=== PATIENT | male | born 1995 | race Caucasian/White ===

== ENCOUNTER → 2017-10-31 | Outpatient (CLI) | payer OTHER, BC ==
--- NOTE | 2017-11-01 00:10 | MR ---
EXAMINATION TYPE: MR lumbar spine wo con DATE OF EXAM: 10/31/2017 COMPARISON: HISTORY: Back pain. Fell off the roof. TECHNIQUE: Multiplanar, multisequence images of the lumbar spine were acquired. Lumbar vertebra have normal alignment. There is slight decreased signal in the L4-5 disc. There is po sterior central and right-sided L4-5 disc herniation. The neuroforamina are fairly well-maintained. T here is no spinal stenosis. There is no compression fracture. I see no focal bone destruction. Lumbar nerve roots appear normal. There is no lumbar paraspinal mass. Visualized sacroiliac joints appear i ntact. IMPRESSION: Mild degenerative disc change at L4-5 with a mild posterior central and right-sided L4-5 disc herniat ion. No spinal stenosis. No fracture.
== END | disposition home or self-care (01) ==
LOC: RADMRIMAIN 18:10
PROVIDERS: ATTEND Family Medicine
DX: M51.36 Other intervertebral disc degeneration, lumbar region (principal); M51.26 Other intervertebral disc displacement, lumbar region
CPT/HCPCS: 72148

== ENCOUNTER 2018-07-24 17:02 | Emergency (ER) | payer OTHER, BC ==
[2018-07-24 17:16] VITALS: BP 125/88; PULSE 100; RESP 18; TEMP 97.7
[2018-07-24] MEDS ORDERED: KETOROLAC 30 MG/ML 1 ML VIAL IM STA (17:33)
[2018-07-24] MEDS ORDERED: MORPHINE SULFATE 4 MG/ML SYRINGE IM STA (17:35)
--- NOTE | 2018-07-24 17:46 | ED ---
General Adult HPI - General Chief complaint: Back Pain/Injury Stated complaint: Back pain Time Seen by Provider: 07/24/18 17:17 Source: patient, RN notes reviewed Mode of arrival: ambulatory Limitations: no limitations - History of Present Illness Initial comments: 23-year-old male presents to the emergency department for chief clean of back pain. Patient states he has had chronic back pain since his time in the service when he had a severe injury to his back. Patient states that sometimes this pain will flare up. Patient states that yesterday he was working and drywall fell on his back. He states since then he has had significant pain. Patient states he is to be on Percocet 10 for this but has not needed as pain medicine for the past several months. Patient states he usually follows up with his primary care provider for this but is unable to get in until the for his appointment. He denies saddle anesthesia. Denies numbness or tingling in the lower extremities. Denies inability to urinate or changes in bowel movements. Denies fevers or chills. Denies history of IV drug abuse. Patient has no other complaints at this time including shortness of breath, chest pain, abdominal pain, nausea or vomiting, headache, or visual changes. - Related Data Previous Rx's Medication Instructions Recorded HYDROcodone/APAP 5-325MG [[place] 1 tab PO Q6HR PRN #10 tab 07/24/18 5-325] Allergies Allergy/AdvReac Type Severity Reaction Status Date / Time No Known Allergies Allergy Verified 07/24/18 17:15 Review of Systems ROS Statement: Those systems with pertinent positive or pertinent negative responses have been documented in the HPI. ROS Other: All systems not noted in ROS Statement are negative. 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 Absent: scleral icterus, conjunctival injection, periorbital swelling ENT exam: Present: normal exam, mucous membranes moist Neck exam: Present: normal inspection, full ROM. Absent: tenderness, meningismus, lymphadenopathy Respiratory exam: Present: normal lung sounds bilaterally. Absent: respiratory distress, wheezes, rales, rhonchi, stridor Cardiovascular Exam: Present: regular rate, normal rhythm, normal heart sounds. Absent: systolic murmur, diastolic murmur, rubs, gallop, clicks GI/Abdominal exam: Present: soft, normal bowel sounds. Absent: distended, tenderness, guarding, rebound, rigid Extremities exam: Present: normal capillary refill (Capillary refill less than 2 seconds, DP pulse 2+ in lower extremities bilaterally), other (Sensation intact in lower extremities bilaterally, strength 5 out of 5 in lower extremities bilaterally) Back exam: Present: tenderness (Generalized lower thoracic and lumbar spine tenderness). Absent: full ROM (Patient has about 45 of flexion of the lumbar spine with minimal rotation due to pain) Neurological exam: Present: alert, oriented X3, CN II-XII intact, normal gait Psychiatric exam: Present: normal affect, normal mood Course Vital Signs 07/24/18 17:12 Temperature 97.7 F Pulse Rate 100 Respiratory 18 Rate Blood Pressure 125/88 O2 Sat by Pulse 100 Oximetry Medical Decision Making - Medical Decision Making 23-year-old male presents to the emergency department for a chief complaint of acute on chronic back pain. Patient states he was injured in service and has had chronic back pain since that time. Patient states drywall fell on his back yesterday and this exacerbated his pain to the point where he has pain with walking and cannot sleep at night. Patient states he usually takes Percocet 10 for his pain however hasn't needed any medications over the past several months due to improvement of symptoms. On exam patient has generalized lower thoracic and lumbar spine tenderness. No focal neuro deficits in the lower extremities. Neurovascular intact in lower extremities. Offered Toradol however patient took Toradol at home about one hour ago. Therefore patient was given IM morphine, not driving home. This did help his symptoms significantly. However I did tell patient that we would not be administering this again in the emergency department. I also gave patient 10 pills of [place] 10. Patient is aware that another prescription will not be filled here through the emergency department he will have to follow up with his primary care provider for any further pain medications. Patient is agreeable to this and states he just needs something to get him through the next few days. He will return if he has any worsening symptoms. is at bedside, will drive patient home. Disposition Clinical Impression: Mechanical back pain Disposition: HOME SELF-CARE Condition: Good Instructions (If sedation given, give patient instructions): Acute Low Back Pain (ED) Additional Instructions: Please take Motrin for pain. If pain is severe take Waldo. Do not drive or operate machinery while taking Waldo. Follow-up with her primary care provider for further prescriptions. Return here if you have any worsening symptoms. Prescriptions: HYDROcodone/APAP 5-325MG [[place] 5-325] 1 tab PO Q6HR PRN #10 tab PRN Reason: Pain Is patient prescribed a controlled substance at d/c from ED?: Yes When asked, does pt state using other controlled substances?: No If prescribed controlled substance>3 days was MAPS reviewed?: Prescribed <3 Days If opioid is for acute pain is fill amount 7 days or less?: Yes If Rx opioid, was Start Talking consent form obtained?: Yes Referrals: Ryne Diggs DO [Primary Care Provider] - 1-2 days Time of Disposition: 18:26
--- NOTE | 2018-07-24 18:11 | XR ---
EXAMINATION TYPE: XR lumbar spine 2 or 3V DATE OF EXAM: 07/24/2018 COMPARISON: NONE HISTORY: Low back pain TECHNIQUE: 2 views lateral FINDINGS: Lumbar vertebra have normal alignment. Disc spaces are fairly normal. Posterior elements ar e intact. There is no evidence of compression fracture. There is slight narrowing at L4-5 disc. IMPRESSION: Slight narrowing at L4-5 disc. Limited exam.
--- NOTE | 2018-07-24 18:12 | XR ---
EXAMINATION TYPE: XR thoracic spine 2V DATE OF EXAM: 07/24/2018 COMPARISON: NONE HISTORY: Back pain TECHNIQUE: 3 views FINDINGS: The thoracic vertebra have normal spacing and alignment. Posterior elements are intact. The re is no paraspinal mass. There is no compression fracture. IMPRESSION: Normal thoracic spine.
== END 2018-07-24 18:47 | disposition home or self-care (01) ==
LOC: EC 17:02
DX: M54.5 Low back pain (principal); M54.6 Pain in thoracic spine; F17.200 Nicotine dependence, unspecified, uncomplicated
CPT/HCPCS: 72070; 72100; 99283; 96372; J2270

== ENCOUNTER 2019-05-17 13:21 | Emergency (ER) | payer BC, OTHER ==
[2019-05-17 13:26] VITALS: BP 139/87; PULSE 95; RESP 20; TEMP 97.5
[2019-05-17] MEDS ORDERED: PROPARACAINE 0.5% OPHTH DROPS 15 ML BTL RIGHT EYE STA (13:41)
[2019-05-17] MEDS ORDERED: TOBRAMYCIN 0.3% OPHTH DROPS 5 ML BTL RIGHT EYE STA (13:48)
--- NOTE | 2019-05-17 13:49 | ED ---
Eye Problem HPI - General Chief complaint: Eye Problems Stated complaint: FB in eye Time Seen by Provider: 05/17/19 13:28 Source: patient, RN notes reviewed Mode of arrival: ambulatory Limitations: no limitations - History of Present Illness Initial comments: 24-year-old male presents emergency department for right eye foreign body . Patient was cutting metal started yesterday and states that he felt something go underneath his safety glasses. Patient states that his tetanus up-to-date last 5 years. Denies any blurred vision. He states it just feels irritated, feels that there something. I. - Related Data Previous Rx's Medication Instructions Recorded HYDROcodone/APAP 5-325MG [[place] 1 tab PO Q6HR PRN #10 tab 07/24/18 5-325] Allergies Allergy/AdvReac Type Severity Reaction Status Date / Time No Known Allergies Allergy Verified 05/17/19 13:26 Review of Systems ROS Statement: Those systems with pertinent positive or pertinent negative responses have been documented in the HPI. ROS Other: All systems not noted in ROS Statement are negative. 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, b ack pain History of Any Multi-Drug Resistant Organisms: None Reported Past Surgical History: Adenoidectomy, Tonsillectomy Additional Past Surgical History / Comment(s): cyst removed from kidney Past Psychological History: No Psychological Hx Reported Smoking Status: Current every day smoker Past Alcohol Use History: Occasional Past Drug Use History: None Reported General Exam Limitations: no limitations General appearance: alert, in no apparent distress Head exam: Present: atraumatic, normocephalic, normal inspection Eye exam: Present: PERRL, EOMI, other (Foreign body noted in the right eye there were 3 pieces of metal that was not admitted, there was some fluorescein uptake in 7 to 8 o'clock position, patient had complete relief of symptoms with proparacaine). Absent: normal appearance, scleral icterus, conjunctival injection, periorbital swelling ENT exam: Present: normal exam, normal oropharynx, mucous membranes moist, TM's normal bilaterally, normal external ear exam Neck exam: Present: normal inspection, full ROM. Absent: tenderness, men ingismus, lymphadenopathy Respiratory exam: Present: normal lung sounds bilaterally. Absent: respiratory distress, wheezes, rales, rhonchi, stridor Cardiovascular Exam: Present: regular rate, normal rhythm, normal heart sounds. Absent: systolic murmur, diastolic murmur, rubs, gallop, clicks Course Vital Signs 05/17/19 13:24 Temperature 97.5 F L Pulse Rate 95 Respiratory 20 Rate Blood Pressure 139/87 O2 Sat by Pulse 100 Oximetry Medical Decision Making - Medical Decision Making Patient had foreign body removal right eye patient was placed on Tobrex eyedrops tetanus is up-to-date patient will follow-up with ophthalmology return for any worsening symptoms. Disposition Clinical Impression: Foreign body of right eye Disposition: HOME SELF-CARE Condition: Stable Instructions (If sedation given, give patient instructions): Eye Foreign Body (ED) Additional Instructions: Use Tobrex eyedrops 1 drop to right eye every 4 hours for 5 days.Please return to the Emergency Department if symptoms worsen or any other concerns. Is patient prescribed a controlled substance at d/c from ED?: No Referrals: Ryne Diggs DO [Primary Care Provider] - 1-2 days Bobby Rios MD [STAFF PHYSICIAN] - 1-2 days Time of Disposition: 13:49
== END 2019-05-17 13:55 | disposition home or self-care (01) ==
LOC: EC 13:21
DX: T15.91XA Foreign body on external eye, part unspecified, right eye, initial encounter (principal); F17.200 Nicotine dependence, unspecified, uncomplicated
CPT/HCPCS: 65205; 99283

== ENCOUNTER 2019-05-20 12:05 | Emergency (ER) | payer OTHER ==
[2019-05-20 12:11] VITALS: RESP 20; TEMP 98
[2019-05-20] MEDS ORDERED: PROPARACAINE 0.5% OPHTH DROPS 15 ML BTL RIGHT EYE STA (12:24)
--- NOTE | 2019-05-20 12:59 | ED ---
Eye Problem HPI - General Chief complaint: Eye Problems Stated complaint: Poss metal in eye Time Seen by Provider: 05/20/19 12:23 Source: patient Mode of arrival: ambulatory Limitations: no limitations - History of Present Illness Initial comments: Patient is 24-year-old male presenting to the emergency department with a chief complaint of eye pain. Patient states 5 days ago he was in the ED for foreign body removal of rust. Patient reports all the foreign bodies were removed and he was prescribed anabiotic drops. Patient reports he continues to have eye discomfort. He denies any pain with extraocular movements. Denies taking any medication to alleviate the symptoms. Denies any discharge from the eye. Does report some blurry vision. - Related Data Previous Rx's Medication Instructions Recorded Ibuprofen [Motrin] 800 mg PO TID 28 Days tab 05/27/19 Nicotine 14Mg/24Hr Patch [Habitrol] 1 patch TRANSDERM DAILY 14 Days 05/27/19 patch OLANZapine [ZyPREXA] 5 mg PO DAILY 28 Days tab 05/27/19 OLANZapine [ZyPREXA] 10 mg PO HS 28 Days tab 05/27/19 Tetrahydrozoline 0.05% Ophth 2 drops BOTH EYES QID PRN ml 05/27/19 [Visine Eye Drops] Tobramycin 0.3% Ophth Oint [Tobrex 1 applic RIGHT EYE TID gm 05/27/19 0.3% Ophth Oint] Zolpidem Tartrate [Ambien] 5 mg PO HS PRN 3 Days #3 tab 05/27/19 cloNIDine HCL [Catapres] 0.1 mg PO TID PRN tab 05/27/19 Allergies Allergy/AdvReac Type Severity Reaction Status Date / Time No Known Allergies Allergy Verified 05/22/19 20:29 Review of Systems ROS Statement: Those systems with pertinent positive or pertinent negative responses have been documented in the HPI. ROS Other: All systems not noted in ROS Statement are negative. 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, back pain History of Any Multi-Drug Resistant Organisms: None Reported Past Surgical History: Adenoidectomy, Tonsillectomy Additional Past Surgical History / Comment(s): cyst removed from kidney Past Psychological History: No Psychological Hx Reported Smoking Status: Current every day smoker Past Alcohol Use History: Occasional Past Drug Use History: None Reported General Exam Limitations: no limitations General appearance: alert, in no apparent distress Head exam: Present: atraumatic, normocephalic, normal inspection Eye exam: Present: normal appearance, PERRL, EOMI, other (Rust ring noted at 9:00 of the right eye. Negative [place] sign) Pupils: Present: normal accommodation ENT exam: Present: normal exam Neck exam: Present: normal inspection, full ROM Respiratory exam: Present: normal lung sounds bilaterally Cardiovascular Exam: Present: regular rate, normal rhythm, normal heart sounds Extremities exam: Present: normal inspection, full ROM Back exam: Present: normal inspection, full ROM Neurological exam: Present: alert, oriented X3 Psychiatric exam: Present: normal affect, normal mood Skin exam: Present: warm, dry, intact, normal color Course Vital Signs 05/20/19 05/20/19 05/20/19 12:08 14:01 14:05 Temperature 98.0 F 98.0 F 98.0 F Pulse Rate 66 60 60 Respiratory 20 20 20 Rate Blood Pressure 126/82 125/85 125/85 O2 Sat by Pulse 99 99 99 Oximetry Medical Decision Making - Medical Decision Making Patient is 24-year-old male presenting to emergency Department with a chief co mplaint of eye pain. Exam patient does have some eye discomfort but no pain with extracted or movements. No periorbital swelling. On fluorescein stain examination patient appears to have a rust ring with negative [place] sign. Patient does have some blurry vision. Patient already has an appointment scheduled to see an rn lvn. The resting appears to be over the visual axis. Patient advised to continue follow-up with his rn lvn tomorrow. Strict return parameters were thoroughly discussed with patient was understanding and agreeable. Case discussed with physician. Disposition Clinical Impression: Corneal rust ring of right eye Disposition: HOME SELF-CARE Condition: Stable Instructions (If sedation given, give patient instructions): Corneal Abrasion (DC) Additional Instructions: Follow-up with ophthalmology. Continue using ophthalmic drops. Please return to emergency department if symptoms worsen. Is patient prescribed a controlled substance at d/c from ED?: No Referrals: Ryne Diggs DO [Primary Care Provider] - 1-2 days Bobby Rios MD [STAFF PHYSICIAN] - 1-2 days Time of Disposition: 14:04
[2019-05-20 14:01] VITALS: BP 125/85; PULSE 60
== END 2019-05-20 14:07 | disposition home or self-care (01) ==
LOC: EC 12:05
DX: T15.01XA Foreign body in cornea, right eye, initial encounter (principal); F17.200 Nicotine dependence, unspecified, uncomplicated; Y92.69 Other specified industrial and construction area as the place of occurrence of the external cause
CPT/HCPCS: 99283

== ENCOUNTER 2019-05-22 20:11 | Inpatient (IN) | payer OTHER ==
--- NOTE | 2019-05-22 21:02 | ED ---
Psych HPI - General Chief Complaint: Psychiatric Symptoms Stated Complaint: mental health Time Seen by Provider: 05/22/19 20:34 Source: patient, RN notes reviewed Mode of arrival: ambulatory - History of Present Illness Initial Comments: This is a 24-year-old male with a benign past medical History other than chronic back pain who states he made some bad choices today. He is going through a divorce and has other issues he states he did voice depression and suicidal thoughts. He does have access to a 40 caliber handgun. He was brought here by police and is under petition. He denies any drugs or alcohol denies any other prior history of depression or suicidal thoughts. MD Complaint: suicidal ideation, feels depressed - Related Data Previous Rx's Medication Instructions Recorded HYDROcodone/APAP 5-325MG [[place] 1 tab PO Q6HR PRN #10 tab 07/24/18 5-325] Allergies Allergy/AdvReac Type Severity Reaction Status Date / Time No Known Allergies Allergy Verified 05/22/19 20:29 Review of Systems ROS Statement: Those systems with pertinent positive or pertinent negative responses have been documented in the HPI. ROS Other: All systems not noted in ROS Statement are negative. 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, back pain History of Any Multi-Drug Resistant Organisms: None Reported Past Surgical History: Adenoidectomy, Tonsillectomy Additional Past Surgical History / Comment(s): cyst removed from kidney Past Psychological History: No Psychological Hx Reported Smoking Status: Current every day smoker Past Alcohol Use History: Occasional Past Drug Use History: None Reported General Exam - General Exam Comments Initial Comments: This is a well-developed well-nourished awake alert oriented 3 male Limitations: no limitations General appearance: alert, in no apparent distress Head exam: Present: atraumatic, normocephalic, normal inspection Eye exam: Present: normal appearance, PERRL, EOMI. Absent: scleral icterus, conjunctival injection, periorbital swelling ENT exam: Present: normal exam, mucous membranes moist Neck exam: Present: normal inspection. Absent: tenderness, meningismus, lymphadenopathy Respiratory exam: Present: normal lung sounds bilaterally. Absent: respiratory distress, wheezes, rales, rhonchi, stridor Cardiovascular Exam: Present: regular rate, normal rhythm, normal heart sounds. Absent: systolic murmur, diastolic murmur, rubs, gallop, clicks GI/Abdominal exam: Present: soft, normal bowel sounds. Absent: distended, tenderness, guarding, rebound, rigid Extremities exam: Present: normal inspection, full ROM, normal capillary refill. Absent: tenderness, pedal edema, joint swelling, calf tenderness Back exam: Present: normal inspection Neurological exam: Present: alert, oriented X3, CN II-XII intact Psychiatric exam: Present: depressed, flat affect, suicidal ideation Skin exam: Present: warm, dry, intact, normal color. Absent: rash Course Vital Signs 05/22/19 20:27 Temperature 98.1 F Pulse Rate 104 H Respiratory 20 Rate Blood Pressure 141/86 O2 Sat by Pulse 99 Oximetry Medical Decision Making - Medical Decision Making Age was evaluated by psychiatric service and will be admitted for inpatient treatment he is agreed to sign in voluntarily. - Lab Data Lab Results 05/22/19 Range/Units 20:41 Urine Opiates Screen Detected H (NotDetected) Ur Oxycodone Screen Detected H (NotDetected) Urine Methadone Screen Not Detected (NotDetected) Ur Propoxyphene Screen Not Detected (NotDetected) Ur Barbiturates Screen Not Detected (NotDetected) U Tricyclic Antidepress Not Detected (NotDetected) Ur Phencyclidine Scrn Not Detected (NotDetected) Ur Amphetamines Screen Detected H (NotDetected) U Methamphetamines Scrn Not Detected (NotDetected) U Benzodiazepines Scrn Detected H (NotDetected) Urine Cocaine Screen Not Detected (NotDetected) U Marijuana (THC) Screen Detected H (NotDetected) Disposition Clinical Impression: Depression, Suicidal ideation Disposition: TRANSFER TO PSYCH HOSP/UNIT Condition: Stable Referrals: Ryne Diggs DO [Primary Care Provider] - 1-2 days
[2019-05-22 21:19] LABS: Amphetamine Screen,Urine Detected (NotDetected); Barbiturate Screen,Urine Not Detected (NotDetected); Benzodiazepines Screen,Urine Detected (NotDetected); Cocaine Screen,Urine Not Detected (NotDetected); Methadone Screen, Urine Not Detected (NotDetected); Opiate Screen,Urine Detected (NotDetected); Oxycodone Screen, Urine Detected (NotDetected); Phencyclidine Screen,Urine Not Detected (NotDetected); Tricyclic Antidepressant,Urine Not Detected (NotDetected); Urn Cannabinoid Scrn Detected (NotDetected)
[2019-05-22] MEDS ORDERED: NICOTINE 14MG/24HR PATCH TRANSDERM STA (21:55)
[2019-05-22] MEDS ORDERED: HYDROcodone/APAP 5-325MG 1 EACH TAB PO STA (21:55)
[2019-05-22] MEDS ORDERED: MAG HYDROX/AL HYDROX/SIMETH 30 ML CUP PO PRN (22:59)
[2019-05-22] MEDS ORDERED: ACETAMINOPHEN TAB 325 MG TAB PO PRN (22:59)
[2019-05-22] MEDS ORDERED: MAGNESIUM HYDROXIDE 2,400 MG/10 ML CUP PO PRN (22:59)
[2019-05-22] MEDS ORDERED: ZIPRASIDONE 20 MG VIAL IM PRN (22:59)
[2019-05-22] MEDS ORDERED: IBUPROFEN 400 MG TAB PO PRN (23:08)
[2019-05-23] MEDS ORDERED: OLANZapine 5 MG TAB PO SCH (09:00)
[2019-05-23] MEDS: NICOTINE 14MG/24HR PATCH TRANSDERM SCH (09:33)
[2019-05-23] MEDS: OLANZapine 5 MG TAB PO SCH ×3 (09:34→22:52)
[2019-05-23] MEDS: IBUPROFEN 800 MG TAB PO SCH ×3 (09:34→22:53)
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
[2019-05-23 15:10] VITALS: BMI 18.8
[2019-05-23] MEDS ORDERED: HYDROcodone/APAP 5-325MG 1 EACH TAB PO PRN (15:37)
[2019-05-23] MEDS ORDERED: TETRAHYDROZOLINE 0.05% OPHTH DROPS 15 ML BTL BOTH EYES PRN (15:47)
[2019-05-23] MEDS: HYDROcodone/APAP 5-325MG 1 EACH TAB PO PRN (16:24)
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
[2019-05-23] MEDS: TOBRAMYCIN 0.3% OPHTH OINT 3.5 GM TUBE RIGHT EYE SCH ×3 (19:02→22:57)
[2019-05-24] MEDS: HYDROcodone/APAP 5-325MG 1 EACH TAB PO PRN ×2 (02:16→15:14)
[2019-05-24 08:53] LABS: Basophils % (A) 1 %; Eosinophils # (A) 0.2 k/uL (0-0.7); Eosinophils % (A) 3 %; HCT 48.3 % (39.0-53.0); HGB 15.6 gm/dL (13.0-17.5); Lymphocytes # (A) 1.8 k/uL (1.0-4.8); Lymphocytes % (A) 32 %; MCH 30.7 pg (25.0-35.0); MCHC 32.3 g/dL (31.0-37.0); MCV 95.1 fL (80.0-100.0); Mean Platelet Volume 8.6; Monocytes # (A) 0.3 k/uL (0-1.0); Monocytes % (A) 5 %; Neutrophils # (A) 3.2 k/uL (1.3-7.7); Neutrophils % (A) 57 %; Platelet Count 283 k/uL (150-450); RBC 5.08 m/uL (4.30-5.90); RDW 12.1 % (11.5-15.5); WBC 5.7 k/uL (3.8-10.6)
[2019-05-24 09:08] LABS: AST 27 U/L (17-59); African American GFR (CKD) >90 (>60 ml/min/1.73 sqM); Albumin 5.3 g/dL (3.5-5.0); Anion Gap 12 mmol/L; Carbon Dioxide 27 mmol/L (22-30); Chloride 106 mmol/L (98-107); Cholesterol 144 mg/dL (<200); Non-African American GFR(CKD) >90 (>60 ml/min/1.73 sqM); Potassium 4.6 mmol/L (3.5-5.1); Sodium 145 mmol/L (137-145); Total Bilirubin 1.1 mg/dL (0.2-1.3); Total Protein 8.7 g/dL (6.3-8.2)
[2019-05-24] MEDS: IBUPROFEN 800 MG TAB PO SCH ×3 (09:12→21:09)
[2019-05-24] MEDS: NICOTINE 14MG/24HR PATCH TRANSDERM SCH (09:12)
[2019-05-24] MEDS: TOBRAMYCIN 0.3% OPHTH OINT 3.5 GM TUBE RIGHT EYE SCH ×3 (09:13→22:39)
[2019-05-24] MEDS: OLANZapine 5 MG TAB PO SCH ×2 (09:13→15:14)
[2019-05-24 09:19] LABS: ALT 6 U/L (4-49); Alkaline Phosphatase 71 U/L (38-126); Blood Urea Nitrogen 11 mg/dL (9-20); Calcium 10.4 mg/dL (8.4-10.2); Glucose 90 mg/dL (74-99); HDL Cholesterol 50 mg/dL (40-60); LDL Cholesterol,Calculated 84 mg/dL (0-99); Triglycerides 52 mg/dL (<150)
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
[2019-05-24] MEDS: OLANZapine 10 MG TAB PO SCH (21:09)
[2019-05-25] MEDS: ZOLPIDEM 5 MG TAB PO PRN ×2 (01:14→20:23)
[2019-05-25] MEDS: IBUPROFEN 800 MG TAB PO SCH ×3 (07:59→21:52)
[2019-05-25] MEDS: OLANZapine 5 MG TAB PO SCH (07:59)
[2019-05-25] MEDS: NICOTINE 14MG/24HR PATCH TRANSDERM SCH (07:59)
[2019-05-25] MEDS ORDERED: LOPERAMIDE 2 MG CAP PO PRN (08:43)
[2019-05-25] MEDS: TOBRAMYCIN 0.3% OPHTH OINT 3.5 GM TUBE RIGHT EYE SCH ×3 (08:54→21:52)
--- NOTE | 2019-05-25 08:54 | P.PN ---
Progress Note - Text Interval history: The patient is found in the hallway he follows me to an interview room. He states that he was admitted for making suicidal statements but he was never suicidal. He indicates he made those statements just to get his mother's attention and to get an opportunity to speak with somebody. He is very focused on being discharged. I reviewed previous progress notes. A family meeting was held. It appears the goal is for the patient to remain off of opiates. We discussed treating some withdrawal symptoms symptomatically with Imodium and clonidine. Vital signs were reviewed. He has no other questions regarding psychiatric medicine. He is currently being treated with Zyprexa. Mental status exam: The patient is a thin male appearing his stated age he is wearing jeans is wearing a hooded sweatshirt with the murdock up. He has a estrella. Eye contact is appropriate he is cooperative easily directed. His s peech is quick but not pressured necessarily. Thought process is linear for the most part he demonstrates no tangential thinking loose associations or flight of ideas. He indicates his mood is bothered by feeling symptoms of withdrawal from opiates but otherwise he states he has no hopelessness thinking no suicidal ideation intent or plan. He reports no homicidal ideation intent or plan. He is endorsing no auditory or visual hallucinations or any specific delusions. He demonstrates no objective evidence of psychosis. Insight and judgment appear to be improving. He demonstrates future oriented thinking. Plan: The patient will continue on his current psychotropic medications I will add clonidine and Imodium for symptomatic management of any opiate withdrawal symptoms. We will monitor him for safety and encourage full participation in the milieu. Vital signs reviewed. He is very much hoping that he will be discharged Monday. He states that there is a meeting plan for his father to attend at noon on Monday.
[2019-05-25] MEDS: cloNIDine HCL 0.1 MG TAB PO PRN ×3 (09:13→23:53)
[2019-05-25] MEDS: OLANZapine 10 MG TAB PO SCH (20:22)
[2019-05-26 01:58] VITALS: RESP 16
[2019-05-26] MEDS: IBUPROFEN 800 MG TAB PO SCH ×3 (08:02→20:34)
[2019-05-26] MEDS: OLANZapine 5 MG TAB PO SCH (08:02)
[2019-05-26] MEDS: NICOTINE 14MG/24HR PATCH TRANSDERM SCH (08:02)
[2019-05-26] MEDS: TOBRAMYCIN 0.3% OPHTH OINT 3.5 GM TUBE RIGHT EYE SCH ×3 (08:03→23:15)
--- NOTE | 2019-05-26 11:04 | P.PN ---
Progress Note - Text Interval history: The patient is found the hallway he follows me to an interview room. He states his mood is fine. He is experiencing some mild symptoms of opiate withdrawal. He states he has some restless leg feelings and diarrhea. The Imodium has helped with the diarrhea. He has been using the clonidine as needed. He is eating he is not vomiting. He states his mood is good he is looking forward to being discharged tomorrow. Mental status exam: The patient's a thin male appearing his stated age. He presents with adequate hygiene grooming. Speech is fluent spontaneous nonpressured. He reports his mood is good affect is pleasant euthymic in appearance. He reports no hopelessness thinking he reports no suicidal ideation intent or plan. He reports no homicidal ideation intent or plan. He denies having any auditory or visual hallucinations or any specific delusions there is no observed evidence of psychosis. He demonstrates no tangential thinking loose associations or flight of ideas. He does not appear hypomanic or manic. Insight and judgment are improving. He remains oriented to person place and date. Plan: The patient will continue on his current medication he has no questions regarding his psychotropic medication. We will encourage his full participation in the milieu. Vital signs reviewed.
[2019-05-26] MEDS: cloNIDine HCL 0.1 MG TAB PO PRN (11:20)
[2019-05-26] MEDS: OLANZapine 10 MG TAB PO SCH (20:34)
[2019-05-26] MEDS: ZOLPIDEM 5 MG TAB PO PRN (20:34)
[2019-05-27] MEDS: cloNIDine HCL 0.1 MG TAB PO PRN (00:05)
[2019-05-27 00:08] VITALS: BP 128/79; PULSE 80; TEMP 97.5
[2019-05-27] MEDS: TOBRAMYCIN 0.3% OPHTH OINT 3.5 GM TUBE RIGHT EYE SCH (08:22)
[2019-05-27] MEDS: IBUPROFEN 800 MG TAB PO SCH (08:22)
[2019-05-27] MEDS: NICOTINE 14MG/24HR PATCH TRANSDERM SCH (08:22)
[2019-05-27] MEDS: OLANZapine 5 MG TAB PO SCH (08:22)
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
== END 2019-05-27 12:35 | disposition home or self-care (01) | DRG 883 ==
LOC: EC 20:11 → 3MHU 22:27
PROVIDERS: ADMIT Psychiatry & Neurology Psychiatry; ATTEND Psychiatry & Neurology Psychiatry
DX: F34.0 Cyclothymic disorder (principal); F11.23 Opioid dependence with withdrawal; R45.851 Suicidal ideations; F12.10 Cannabis abuse, uncomplicated; Z71.51 Drug abuse counseling and surveillance of drug abuser; F17.210 Nicotine dependence, cigarettes, uncomplicated; F41.0 Panic disorder [episodic paroxysmal anxiety]; F43.10 Post-traumatic stress disorder, unspecified; G47.00 Insomnia, unspecified; S40.012A Contusion of left shoulder, initial encounter; Z65.3 Problems related to other legal circumstances; G89.29 Other chronic pain; G25.81 Restless legs syndrome; R19.7 Diarrhea, unspecified; Y04.0XXA Assault by unarmed brawl or fight, initial encounter; Z80.8 Family history of malignant neoplasm of other organs or systems; Z63.0 Problems in relationship with spouse or partner; M51.26 Other intervertebral disc displacement, lumbar region; H16.131 Photokeratitis, right eye
CPT/HCPCS: 80053; 80061; 80306; 82075; 83036; 84443; 85025; 99285

== ENCOUNTER 2019-10-30 11:27 | Emergency (ER) | payer OTHER ==
[2019-10-30 11:47] VITALS: RESP 18; TEMP 98.3
--- NOTE | 2019-10-30 12:40 | ED ---
General Adult HPI - General Chief complaint: Extremity Problem,Nontraumatic Stated complaint: Numbness in both arms Time Seen by Provider: 10/30/19 12:00 Source: patient, RN notes reviewed, old records reviewed Mode of arrival: ambulatory Limitations: no limitations - History of Present Illness Initial comments: This is a 24 her old male presents emergency Department complaining that he has been waking up in the morning with both hands feeling tingly from the elbows down. Patient states he gets better throughout the day. Patient states been ongoing for at least 6-8 weeks. Patient states he saw his primary medical care doctor about one month ago for the same thing. Patient states today it was so tingly when handling he felt like he needed to be seen in emergency department and did not want to go to work. Patient is asking for a work note. Patient states he has weakness at the beginning but has a comes around to get strength back and currently only has a tingling sensation in both hands. Patient denies any headache patient denies any actual weakness currently. Patient denies any loss of sensation currently. Patient notes change in sensation. Patient denies any fever chills. Patient denies any injury patient denies any neck pain patient denies any neck injury. - Related Data Home Medications Medication Instructions Recorded Confirmed HYDROcodone/APAP 10-325MG [[place] 1 tab PO BID PRN 10/30/19 10/30/19 10-325] tiZANidine HCL [Zanaflex] 4 mg PO BID 10/30/19 10/30/19 Allergies Allergy/AdvReac Type Severity Reaction Status Date / Time No Known Allergies Allergy Verified 10/30/19 12:43 Review of Systems ROS Statement: Those systems with pertinent positive or pertinent negative responses have been documented in the HPI. ROS Other: All systems not noted in ROS Statement are negative. 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 Patient is nontoxic and well- hydrated and is in no acute distress. ENT: Neck is soft and supple. No significant lymphadenopathy is noted. Oropharynx is clear. Moist mucous membranes. Neck has full range of motion without eliciting any pain. EYES: The sclera were anicteric and conjunctiva were pink and moist. Extraocular movements were intact and pupils were equal round and reactive to light. Eyelids were unremarkable. PULMONARY: Unlabored respirations. Good breath sounds bilaterally. No audible rales rhonchi or wheezing was noted. CARDIOVASCULAR: There is a regular rate and rhythm without any murmurs gallops or rubs. ABDOMEN: Soft and nontender with normal bowel sounds. SKIN: Skin is clear with no lesions or rashes and otherwise unremarkable. NEUROLOGIC: Patient is alert and oriented x3. Cranial nerves II through XII are grossly intact. Motor and sensory are also intact. Patient states when I touch his right arm it feels normal left arm feels different the right arm but he can sense the light touch and painful sting. Normal speech, volume and content. Symmetrical smile. MUSCULOSKELETAL: Normal extremities with adequate strength and full range of motion. No lower extremity swelling or edema. No calf tenderness. LYMPHATICS: No significant lymphadenopathy is noted PSYCHIATRIC: Normal psychiatric evaluation. Limitations: no limitations Course Vital Signs 10/30/19 11:44 Temperature 98.3 F Pulse Rate 67 Respiratory 18 Rate Blood Pressure 114/48 O2 Sat by Pulse 98 Oximetry Medical Decision Making - Medical Decision Making cervical spine x-ray shows no acute abnormality. Disposition Clinical Impression: Paresthesia of hand, bilateral Disposition: HOME SELF-CARE Instructions (If sedation given, give patient instructions): Paresthesia (ED) Additional Instructions: Patient's take Motrin 600 mg 4 times a day for the next 5 days and follow-up w ith his primary medical care doctor Is patient prescribed a controlled substance at d/c from ED?: No Referrals: Ryne Diggs DO [Primary Care Provider] - 1-2 days Time of Disposition: 13:34
[2019-10-30] MEDS ORDERED: KETOROLAC 60 MG/2 ML VIAL IM STA (12:41)
--- NOTE | 2019-10-30 13:40 | XR ---
Cervical spine HISTORY: Paresthesia, numbness in arms 5 views of the cervical spine Cervical vertebral bodies show preserved height, alignment, and bone mineralization. Disc spaces and prevertebral soft tissues are normal. Lung apices unremarkable. No evident foraminal encroachment. IMPRESSION: Normal cervical spine
[2019-10-30 14:00] VITALS: BP 107/70; PULSE 59
== END 2019-10-30 14:00 | disposition home or self-care (01) ==
LOC: EC 11:27
DX: R20.2 Paresthesia of skin (principal); R20.0 Anesthesia of skin; F17.200 Nicotine dependence, unspecified, uncomplicated; Z79.899 Other long term (current) drug therapy
CPT/HCPCS: 72050; 99284

== ENCOUNTER → 2020-02-28 | Outpatient (CLI) | payer OTHER ==
[2020-02-28 09:37] LABS: Ionized Calcium 5.3 mg/dL (4.5-5.3)
== END | disposition home or self-care (01) ==
LOC: LABWHC1 08:20
PROVIDERS: ATTEND Internal Medicine
DX: E83.52 Hypercalcemia (principal)
CPT/HCPCS: 36415; 82306; 82330; 83970

== ENCOUNTER → 2020-07-16 | Outpatient (CLI) | payer OTHER ==
[2020-07-16 12:21] LABS: Glucose 2 Hour 108 mg/dL
[2020-07-16 18:41] LABS: Basophils # (A) 0.05 X 10*3/uL (0.00-0.10); Eosinophils # (A) 0.15 X 10*3/uL (0.04-0.35); HCT 43.2 % (39.6-50.0); HGB 14.4 g/dL (13.0-17.0); Lymphocytes # (A) 1.79 X 10*3/uL (0.90-5.00); Lymphocytes % (A) 35.5 %; MCH 31.1 pg (27.0-32.0); MCHC 33.3 g/dL (32.0-37.0); MCV 93.3 fL (80.0-97.0); Mean Platelet Volume 11.9 fL (9.5-12.2); Monocytes % (A) 7.9 %; Neutrophils # (A) 2.64 X 10*3/uL (1.80-7.70); Neutrophils % (A) 52.4 %; Platelet Count 338 X 10*3/uL (140-440); RBC 4.63 X 10*6/uL (4.40-5.60); RDW 12.4 % (11.5-14.5); WBC 5.04 X 10*3/uL (4.50-10.00)
[2020-07-16 23:30] LABS: Ferritin 71.8 ng/mL (22.0-322.0)
[2020-07-16 23:37] LABS: % Iron Saturation 29.33 (15.00-50.00); ALT <8 U/L (10-49); AST 15 U/L (14-35); Albumin/Globulin Ratio 2.58 (1.60-3.17); Alkaline Phosphatase 74 U/L (41-126); Carbon Dioxide 22.7 mmol/L (21.6-31.8); Chloride 108 mmol/L (96-109); Chol/HDL Ratio 2.87; Cholesterol 132 mg/dL (0-200); Globulin 1.9 g/dL (1.6-3.3); Glucose 122 mg/dL (70-110); Iron 88 ug/dL (65-175); LDL Cholesterol,Calculated 74.8 mg/dL (0.0-131.0); Non-African American GFR(CKD) 102.7 (60.0-200.0); Potassium 4.8 mmol/L (3.5-5.5); Sodium 142 mmol/L (135-145); Total Bilirubin 0.5 mg/dL (0.3-1.2); Total Iron Binding Capacity 300 ug/dL (228-460); Total Protein 6.8 g/dL (6.2-8.2)
== END | disposition home or self-care (01) ==
LOC: LABWHC1 08:00
PROVIDERS: ATTEND Family Medicine
DX: E16.2 Hypoglycemia, unspecified (principal); R55 Syncope and collapse; R53.83 Other fatigue
CPT/HCPCS: 36415; 80053; 80061; 82306; 82533; 82607; 82728; 82947; 82950; 83036; 83525; 83540; 83550; 84402; 84403; 84439; 84443; 84481; 85025

== ENCOUNTER → 2020-07-21 | Outpatient (CLI) | payer OTHER ==
--- NOTE | 2020-07-24 11:00 | ECHOF ---
Referral Reason:[id number] Syncope and collapse MEASUREMENTS -------- HEIGHT: 182.9 cm WEIGHT: 68.0 kg BP: RVIDd: 2.7 cm (< 3.3) IVSd: 0.7 cm (0.6 - 1.1) LVIDd: 4.8 cm (3.9 - 5.3) LVPWd: 1.0 cm (0.6 - 1.1) IVSs: 1.2 cm LVIDs: 2.9 cm LVPWs: 1.7 cm LAESV Index (A-L): 21.15 ml/m Ao Diam: 3.6 cm (2.0 - 3.7) AV Cusp: 2.3 cm (1.5 - 2.6) MV EXCURSION: 24.902 mm (> 18.000) MV EF SLOPE: 106 mm/s (70 - 150) EPSS: 0.2 cm MV E Sonu: 0.78 m/s MV DecT: 135 ms MV A Sonu: 0.67 m/s MV E/A Ratio: 1.15 RAP: 5.00 mmHg RVSP: 24.48 mmHg FINDINGS -------- Sinus rhythm. This was a technically adequate study. The left ventricular size is normal. Left ventricular wall thickness is normal. Overall left vent ricular systolic function is normal with, an EF between 55 - 60 %. The diastolic filling pattern is normal for the age of the patient {E/E'}. The right ventricle is normal in size. Normal LA size by volume 22+/-6 ml/m2. The right atrial size is normal. Interatrial and interventricular septum intact. The aortic valve is trileaflet and appears structurally normal. There is no evidence of aortic regu rgitation. There is no evidence of aortic stenosis. No mitral regurgitation. Mild tricuspid regurgitation present. There is no evidence of pulmonary hypertension. The right v entricular systolic pressure, as measured by Doppler, is 24.48mmHg. There is no pulmonic regurgitation present. The aortic root size is normal. Normal inferior vena cava with normal inspiratory collapse consistent with estimated right atrial pre ssure of 5 mmHg. There is no pericardial effusion. CONCLUSIONS -------- 1. The left ventricular size is normal. 2. Left ventricular wall thickness is normal. 3. Overall left ventricular systolic function is normal with, an EF between 55 - 60 %. 4. The diastolic filling pattern is normal for the age of the patient {E/E'} 5. Mild tricuspid regurgitation present. ACCIDENT REPORT CLERK: Alicia Silva RDCS
== END | disposition home or self-care (01) ==
LOC: RADECHMAIN 16:09
PROVIDERS: ATTEND Family Medicine
DX: I07.1 Rheumatic tricuspid insufficiency (principal)
CPT/HCPCS: 93306

== ENCOUNTER 2020-08-30 12:02 | Emergency (ER) | payer OTHER ==
--- NOTE | 2020-08-30 12:12 | ED ---
General Adult HPI - General Stated complaint: overdose Time Seen by Provider: 08/30/20 12:03 Source: patient, EMS, RN notes reviewed Mode of arrival: EMS Limitations: no limitations - History of Present Illness Initial comments: Patient is a pleasant 25-year-old male brought to emergency department by EMS following unresponsive episode. Patient was found at home face down near the refrigerator. Patient denies drug use. Reportedly family had concerns for previous fentanyl problems. Patient denies any drug use. Patient is unclear what happened. Patient has no complaints at this time. Patient states he does not feel confused only feels cold. Patient is shaking. Patient denies any thoughts of self-harm or attempts at self-harm. - Related Data Home Medications Medication Instructions Recorded Confirmed HYDROcodone/APAP 10-325MG [Brewster 1 tab PO BID PRN 10/30/19 10/30/19 10-325] tiZANidine HCL [Zanaflex] 4 mg PO BID 10/30/19 10/30/19 Allergies Allergy/AdvReac Type Severity Reaction Status Date / Time No Known Allergies Allergy Verified 08/30/20 12:14 Review of Systems ROS Statement: Those systems with pertinent positive or pertinent negative responses have been documented in the HPI. ROS Other: All systems not noted in ROS Statement are negative. 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, back pain, L4-5 disc herniation, History of Any Multi-Drug Resistant Organisms: None Reported Past Surgical History: Adenoidectomy, Tonsillectomy Additional Past Surgical History / Comment(s): cyst removed from kidney, wisdom teeth Past Psychological History: No Psychological Hx Reported Past Alcohol Use History: Rare Past Drug Use History: Marijuana - Past Family History Father Additional Family Medical History / Comment(s): skin cancer General Exam Limitations: no limitations General appearance: alert, in no apparent distress, other (Patient is shaking) Head exam: Present: other (Left quaker abrasion) Eye exam: Present: normal appearance, PERRL, EOMI. Absent: nystagmus ENT exam: Present: normal oropharynx Neck exam: Present: normal inspection. Absent: tenderness Respiratory exam: Present: normal lung sounds bilaterally Cardiovascular Exam: Present: regular rate, normal rhythm Expanded Peripheral pulses: 2+: Radial (R), Radial (L), Posterior Tibialis (R), Posterior Tibialis (L) GI/Abdominal exam: Present: soft. Absent: tenderness Extremities exam: Present: normal inspection, full ROM. Absent: tenderness Neurological exam: Present: alert, oriented X3, CN II-XII intact. Absent: motor sensory deficit Expanded Neurological exam: Present: protecting the airway Patient oriented to: Present: person, place, time Speech: Present: fluid speech Cranial nerves: EOM's Intact: Normal Motor strength exam: RUE: 5, LUE: 5, RLE: 5, LLE: 5 Eye Response: (4) open spontaneously Motor Response: (6) obeys commands Verbal Response: (5) oriented Psychiatric exam: Present: normal affect, normal mood Skin exam: Present: normal color EKG Findings - EKG Comments: EKG Findings:: Normal sinus rhythm with rate of 93. WI 138. QRS 84. QT 380. QTC 472. Normal axis. Normal QRS. No acute ST change. Medical Decision Making - Medical Decision Making Patient has eloped Disposition Clinical Impression: Unresponsive episode Disposition: Left Against Medical Advice Is patient prescribed a controlled substance at d/c from ED?: No Referrals: Joe Ferrara MD [REFERRING] - 1-2 days Time of Disposition: 12:18
[2020-08-30 12:20] VITALS: BP 123/85; PULSE 98; RESP 16; TEMP 98
== END 2020-08-30 12:23 | disposition left against medical advice (07) ==
LOC: SUPCPDRO 12:02 → EC 12:02
DX: R40.4 Transient alteration of awareness (principal); S00.81XA Abrasion of other part of head, initial encounter; F12.90 Cannabis use, unspecified, uncomplicated; X58.XXXA Exposure to other specified factors, initial encounter
CPT/HCPCS: 93005; 99284

== ENCOUNTER 2020-08-31 21:22 | Emergency (ER) | payer OTHER ==
[2020-08-31 21:44] VITALS: BP 108/62; PULSE 87; RESP 17; TEMP 98.6
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
--- NOTE | 2020-08-31 22:18 | CT ---
EXAMINATION TYPE: CT brain shawn wo con DATE OF EXAM: 08/31/2020 COMPARISON: CT brain 02/12/2012 HISTORY: Fall. Headache. Neck pain. CT DLP: 1350 mGycm Automated exposure control for dose reduction was used. Images were obtained of the brain and cervical spine without contrast. Ventricles and sulci appear normal. There is no mass effect nor midline shift. There is no sign of in tracranial hemorrhage. The calvarium is intact. Skull base is intact. There is fairly normal aeration of the mastoid sinuses. The cervical vertebra have normal spacing and alignment. Posterior elements are intact. Facet joints appear normal. Prevertebral soft tissues appear normal. IMPRESSION: Normal CT scan of the cervical spine. Normal CT scan of the brain. No change.
== END 2020-08-31 22:12 | disposition left against medical advice (07) ==
LOC: EC 21:22
DX: T40.601A Poisoning by unspecified narcotics, accidental (unintentional), initial encounter (principal); Z53.29 Procedure and treatment not carried out because of patient's decision for other reasons
CPT/HCPCS: 70450; 72125; 93005; 99285

== ENCOUNTER 2021-10-04 18:05 | Emergency (ER) | payer OTHER ==
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
[2021-10-04] MEDS ORDERED: PROPARACAINE 0.5% OPHTH DROPS 15 ML BTL LEFT EYE STA (18:28)
[2021-10-04] MEDS ORDERED: FLUORESCEIN STRIPS 1 MG STRIP LEFT EYE ONE (18:28)
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
[2021-10-04 20:28] VITALS: BP 123/79; PULSE 98; RESP 18; TEMP 98.7
== END 2021-10-04 20:43 | disposition home or self-care (01) ==
LOC: EC 18:05
DX: S00.12XA Contusion of left eyelid and periocular area, initial encounter (principal); F12.90 Cannabis use, unspecified, uncomplicated; Y04.8XXA Assault by other bodily force, initial encounter
CPT/HCPCS: 70450; 70486; 99284

== ENCOUNTER → 2022-09-06 | Outpatient (CLI) | payer OTHER ==
--- NOTE | 2022-09-07 07:12 | MR ---
EXAMINATION TYPE: MR lumbar spine wo con DATE OF EXAM: 09/06/2022 COMPARISON: MRI lumbar spine October 31, 2017 HISTORY: Low back pain that radiates down both legs. Scoliosis per order. TECHNIQUE: Multiplanar, multisequence imaging of the lumbar spine is performed without IV contrast. FINDINGS: Sagittal images of the lumbar spine show vertebral body heights and alignment to appear sat isfactory. Persistent disc desiccation and mild disc space narrowing at L4-L5 and L5-S1 levels. There is new posterior increased signal consistent with annular tear at L4-L5 level. The conus medullaris remains normal in position and signal ending at T12-L1 disc space level. The bone marrow signal inte nsity is within normal limits. Axial images show T12-L1 through the L3-L4 levels to remain within normal limits. Axial images at the L4-L5 level show mild facet arthropathy bilaterally and tiny central disc protrus ion minimally effacing the anterior thecal sac. Patent bilateral neural foramina. Axial images at the L5-S1 level show tiny central disc protrusion and mild facet arthropathy but the spinal canal is preserved and bilateral neural foramina are patent. Paraspinal muscle bulk is maintained. IMPRESSION: Mild degenerative changes in the lower lumbar spine as detailed above remain present.
== END | disposition home or self-care (01) ==
LOC: RADMRIMAIN 18:59
PROVIDERS: ATTEND Family Medicine
DX: M47.816 Spondylosis without myelopathy or radiculopathy, lumbar region (principal); M41.86 Other forms of scoliosis, lumbar region; M48.07 Spinal stenosis, lumbosacral region
CPT/HCPCS: 72148

== ENCOUNTER 2023-10-18 12:37 | Observation (INO) | payer OTHER ==
--- NOTE | 2023-10-18 13:30 | ED ---
General Adult HPI - General Chief complaint: Extremity Injury, Lower Stated complaint: Both Leg Swelling Time Seen by Provider: 10/18/23 13:13 Source: patient, RN notes reviewed, old records reviewed Mode of arrival: ambulatory Limitations: no limitations - History of Present Illness Initial comments: 28-year-old male presenting for evaluation of bilateral lower extremity swelling and difficulty urinating. Patient states that he feels as though he has to urinate but is having trouble. He feels bilateral flank pain. No fever. No vomiting. He woke this morning and noticed that both of his legs were swollen. No trouble breathing. No chest pain. No fever. - Related Data Home Medications Medication Instructions Recorded Confirmed Gabapentin 300 mg PO TID 10/04/21 10/04/21 oxyCODONE HCL/ACETAMINOPHEN 1 tab PO BID PRN 10/04/21 10/04/21 [Percocet 10-325 mg] Allergies Allergy/AdvReac Type Severity Reaction Status Date / Time No Known Allergies Allergy Verified 10/18/23 12:50 Review of Systems ROS Statement: Those systems with pertinent positive or pertinent negative responses have been documented in the HPI. ROS Other: All systems not noted in ROS Statement are negative. 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, back pain, L4-5 disc herniation, History of Any Multi-Drug Resistant Organisms: None Reported Past Surgical History: Adenoidectomy, Tonsillectomy Additional Past Surgical History / Comment(s): cyst removed from kidney, wisdom teeth Past Psychological History: No Psychological Hx Reported Smoking Status: Current every day smoker Past Alcohol Use History: Rare Past Drug Use History: Marijuana - Past Family History Father Additional Family Medical History / Comment(s): skin cancer General Exam Limitations: no limitations General appearance: alert, in no apparent distress Head exam: Present: atraumatic, normocephalic Eye exam: Present: normal appearance, PERRL ENT exam: Present: normal exam Neck exam: Present: normal inspection. Absent: tenderness, meningismus Respiratory exam: Present: normal lung sounds bilaterally. Absent: respiratory distress, wheezes, rales Cardiovascular Exam: Present: normal rhythm, tachycardia GI/Abdominal exam: Present: soft. Absent: distended, tenderness, guarding, re bound Extremities exam: Present: pedal edema Neurological exam: Present: alert, oriented X3, CN II-XII intact. Absent: motor sensory deficit Psychiatric exam: Present: normal affect, normal mood Skin exam: Present: warm, dry, intact. Absent: cyanosis, diaphoretic Course Vital Signs 10/18/23 12:48 Temperature 97.6 F Pulse Rate 104 H Respiratory 18 Rate Blood Pressure 170/91 O2 Sat by Pulse 99 Oximetry Medical Decision Making - Medical Decision Making Was pt. sent in by a medical professional or institution (NADINE Goldstein, MEDICAL RECORD LIBRARIAN, urgent care, hospital, or [facility]...) When possible be specific @ -No Did you speak to anyone other than the patient for history (EMS, parent, family, police, friend...)? What history was obtained from this source @ -No Did you review nursing and triage notes (agree or disagree)? Why? @ -I reviewed and agree with nursing and triage notes Were old charts reviewed (outside hosp., previous admission, EMS record, old EKG, old radiological studies, urgent care reports/EKG's, [facility] records)? Report findings @ -No old charts were reviewed Differential Diagnosis renal failure, congestive heart failure, peripheral edema EKG interpreted by me (3pts min.). @Sinus rhythm rate of 91, [place] interval 142, QRS duration 93, QTc 418 Q wave and T wave inversion in lead III X-rays interpreted by me (1pt min.). @ -None done CT interpreted by me (1pt min.). @ -None done U/S interpreted by me (1pt. min.). @Ultrasound of the kidneys and bladder pending, echo has been ordered. What testing was considered but not performed or refused? (CT, X-rays, U/S, labs)? Why? @ -None What meds were considered but not given or refused? Why? @ -None Did you discuss the management of the patient with other professionals (professionals i.e. NADINE Goldstein, MEDICAL RECORD LIBRARIAN, lab, RT, psych nurse, social media community manager, institutional nutrition consultant, teacher, chief innovation officer, rifle case repairer)? Give summary @ -No Was smoking cessation discussed for >3mins.? @ -No Was critical care preformed (if so, how long)? @ -No Were there social determinants of health that impacted care today? How? (Homelessness, low income, unemployed, alcoholism, drug addiction, transportation, low edu. Level, literacy, decrease access to med. care, alf, rehab)? @ -No Was there de-escalation of care discussed even if they declined (Discuss DNR or withdrawal of care, Hospice)? DNR status @ -No What co-morbidities impacted this encounter? (DM, HTN, Smoking, COPD, CAD, Cancer, CVA, ARF, Chemo, Hep., AIDS, mental health diagnosis, sleep apnea, morbid obesity)? @ -None Was patient admitted / discharged? Hospital course, mention meds given and route, prescriptions, significant lab abnormalities, going to OR and other per tinent info. @28-year-old male presenting for evaluation of difficulty urinating and bilateral lower extremity edema which has started over the past 24 hours. Patient denies difficulty breathing. Denies fever. Patient has ultrasound of the bladder and kidneys pending, has echo ordered. D- dimer pending. Patient admitted to internal medicine with nephrology on consult as well as cardiology. Case discussed with Dr. Cuenca who will admit. Patient is anemic at 12.4. He has electrolyte abnormalities including hypokalemia, hypocalcemia., Albumin is low. Troponin is mildly elevated this level will be trended. D-dimer pending Diagnosis: Peripheral edema, troponin elevation, - Lab Data Result diagrams: 10/18/23 13:59 10/18/23 13:59 Lab Results 10/18/23 10/18/23 10/18/23 Range/Units 12:59 13:59 13:59 WBC 7.2 (3.8-10.6) k/uL RBC 3.92 L (4.30-5.90) m/uL Hgb 12.4 L (13.0-17.5) gm/dL Hct 36.4 L (39.0-53.0) % MCV 92.9 (80.0-100.0) fL MCH 31.6 (25.0-35.0) pg MCHC 34.0 (31.0-37.0) g/dL RDW 12.1 (11.5-15.5) % Plt Count 286 (150-450) k/uL MPV 8.7 Neutrophils % 59 % Lymphocytes % 26 % Monocytes % 8 % Eosinophils % 5 % Basophils % 1 % Neutrophils # 4.3 (1.3-7.7) k/uL Lymphocytes # 1.9 (1.0-4.8) k/uL Monocytes # 0.6 (0-1.0) k/uL Eosinophils # 0.3 (0-0.7) k/uL Basophils # 0.0 (0-0.2) k/uL PT 10.6 (10.0-12.5) sec INR 1.0 (<1.2) APTT 25.8 (22.0-30.0) sec Sodium (137-145) mmol/L Potassium (3.5-5.1) mmol/L Chloride (98-107) mmol/L Carbon Dioxide (22-30) mmol/L Anion Gap mmol/L BUN (9-20) mg/dL Creatinine (0.66-1.25) mg/dL Est GFR (CKD-EPI)AfAm (>60 ml/min/1.73 sqM) Est GFR (CKD-EPI)NonAf (>60 ml/min/1.73 sqM) Glucose (74-99) mg/dL Calcium (8.4-10.2) mg/dL Magnesium (1.6-2.3) mg/dL Total Bilirubin (0.2-1.3) mg/dL AST (17-59) U/L ALT (4-49) U/L Alkaline Phosphatase (38-126) U/L Troponin I (0.000-0.034) ng/mL NT-Pro-B Natriuret Pep pg/mL Total Protein (6.3-8.2) g/dL Albumin (3.5-5.0) g/dL Urine Color Yellow Urine Appearance Clear (Clear) Urine pH 6.5 (5.0-8.0) Ur Specific Bushnell 1.022 (1.001-1.035) Urine Protein Trace H (Negative) Urine Glucose (UA) Negative (Negative) Urine Ketones Negative (Negative) Urine Blood Negative (Negative) Urine Nitrite Negative (Negative) Urine Bilirubin Negative (Negative) Urine Urobilinogen 2.0 (<2.0) mg/dL Ur Leukocyte Esterase Negative (Negative) 10/18/23 10/18/23 Range/Units 13:59 13:59 WBC (3.8-10.6) k/uL RBC (4.30-5.90) m/uL Hgb (13.0-17.5) gm/dL Hct (39.0-53.0) % MCV (80.0-100.0) fL MCH (25.0-35.0) pg MCHC (31.0-37.0) g/dL RDW (11.5-15.5) % Plt Count (150-450) k/uL MPV Neutrophils % % Lymphocytes % % Monocytes % % Eosinophils % % Basophils % % Neutrophils # (1.3-7.7) k/uL Lymphocytes # (1.0-4.8) k/uL Monocytes # (0-1.0) k/uL Eosinophils # (0-0.7) k/uL Basophils # (0-0.2) k/uL PT (10.0-12.5) sec INR (<1.2) APTT (22.0-30.0) sec Sodium 138 (137-145) mmol/L Potassium 3.4 L (3.5-5.1) mmol/L Chloride 104 (98-107) mmol/L Carbon Dioxide 33 H (22-30) mmol/L Anion Gap 1 mmol/L BUN 8 L (9-20) mg/dL Creatinine 0.60 L (0.66-1.25) mg/dL Est GFR (CKD-EPI)AfAm >90 (>60 ml/min/1.73 sqM) Est GFR (CKD-EPI)NonAf >90 (>60 ml/min/1.73 sqM) Glucose 86 (74-99) mg/dL Calcium 7.6 L (8.4-10.2) mg/dL Magnesium 1.7 (1.6-2.3) mg/dL Total Bilirubin 0.3 (0.2-1.3) mg/dL AST 67 H (17-59) U/L ALT 16 (4-49) U/L Alkaline Phosphatase 63 (38-126) U/L Troponin I 0.055 H* (0.000-0.034) ng/mL NT-Pro-B Natriuret Pep 35 pg/mL Total Protein 5.3 L (6.3-8.2) g/dL Albumin 3.1 L (3.5-5.0) g/dL Urine Color Urine Appearance (Clear) Urine pH (5.0-8.0) Ur Specific Bushnell (1.001-1.035) Urine Protein (Negative) Urine Glucose (UA) (Negative) Urine Ketones (Negative) Urine Blood (Negative) Urine Nitrite (Negative) Urine Bilirubin (Negative) Urine Urobilinogen (<2.0) mg/dL Ur Leukocyte Esterase (Negative) Disposition Clinical Impression: Peripheral edema, Elevated troponin I level Disposition: ADMITTED IP TO THIS HOSP Condition: Stable Is patient prescribed a controlled substance at d/c from ED?: No Referrals: Ryne Diggs DO [Primary Care Provider] - 1-2 days Time of Disposition: 15:13
[2023-10-18 14:16] LABS: Basophils % (A) 1 %; Eosinophils # (A) 0.3 k/uL (0-0.7); Eosinophils % (A) 5 %; HCT 36.4 % (39.0-53.0); HGB 12.4 gm/dL (13.0-17.5); Lymphocytes # (A) 1.9 k/uL (1.0-4.8); Lymphocytes % (A) 26 %; MCH 31.6 pg (25.0-35.0); MCV 92.9 fL (80.0-100.0); Mean Platelet Volume 8.7; Monocytes # (A) 0.6 k/uL (0-1.0); Monocytes % (A) 8 %; Neutrophils # (A) 4.3 k/uL (1.3-7.7); Neutrophils % (A) 59 %; Platelet Count 286 k/uL (150-450); RBC 3.92 m/uL (4.30-5.90); RDW 12.1 % (11.5-15.5); WBC 7.2 k/uL (3.8-10.6)
[2023-10-18 14:35] LABS: Appearance,Urine Clear (Clear); Bilirubin,Urine Negative (Negative); Blood,Urine Negative (Negative); Color,Urine Yellow; Glucose,Urine (UA) Negative (Negative); Ketones,Urine Negative (Negative); Leukocyte Esterase,Urine Negative (Negative); Nitrite,Urine Negative (Negative); PH, Urine 6.5 (5.0-8.0); Protein,Urine Trace (Negative); Specific Gravity,Urine 1.022 (1.001-1.035)
[2023-10-18 14:37] LABS: ALT 16 U/L (4-49); AST 67 U/L (17-59); African American GFR (CKD) >90 (>60 ml/min/1.73 sqM); Albumin 3.1 g/dL (3.5-5.0); Alkaline Phosphatase 63 U/L (38-126); Anion Gap 1 mmol/L; Blood Urea Nitrogen 8 mg/dL (9-20); Calcium 7.6 mg/dL (8.4-10.2); Carbon Dioxide 33 mmol/L (22-30); Chloride 104 mmol/L (98-107); Glucose 86 mg/dL (74-99); Magnesium 1.7 mg/dL (1.6-2.3); Non-African American GFR(CKD) >90 (>60 ml/min/1.73 sqM); Potassium 3.4 mmol/L (3.5-5.1); Sodium 138 mmol/L (137-145); Total Bilirubin 0.3 mg/dL (0.2-1.3); Total Protein 5.3 g/dL (6.3-8.2)
[2023-10-18 14:43] LABS: Partial Thromboplastin Time 25.8 sec (22.0-30.0); Prothrombin Time 10.6 sec (10.0-12.5)
[2023-10-18 14:44] LABS: NT-Pro-B-Type Natriuretic Pept 35 pg/mL
[2023-10-18] MEDS ORDERED: ACETAMINOPHEN TAB 325 MG TAB PO PRN (15:03)
[2023-10-18] MEDS ORDERED: NALOXONE 0.4 MG/ML 1 ML VIAL IV PRN (15:03)
--- NOTE | 2023-10-18 15:15 | US ---
EXAMINATION TYPE: US renals and bladder DATE OF EXAM: 10/18/2023 COMPARISON: NONE CLINICAL INDICATION: Male, 28 years old with history of Urinary retention/flank pain; Patient states he has a hard time urinating and has to push. Patient states hx of renal stones. Patient just voide d before exam. EXAM MEASUREMENTS: Right Kidney: 10.0 x 4.9 x 4.7 cm Left Kidney: 10.9 x 5.1 x 5.1 cm Right Kidney: No hydronephrosis or masses seen, lower pole not well seen due to overlying bowel gas Left Kidney: No hydronephrosis or masses seen Bladder: mildly distended Bilateral Jets not seen There is no evidence for hydronephrosis at this point in time. No nephrolithiasis is seen. No jordan s are identified. The urinary bladder is anechoic. IMPRESSION: Limited study although No significant abnormality is appreciated
[2023-10-18] MEDS: ASPIRIN 325 MG TAB PO STA (15:38)
[2023-10-18] MEDS ORDERED: ONDANSETRON 4 MG/2 ML VIAL IVP PRN (16:50)
[2023-10-18] MEDS ORDERED: MELATONIN 3 MG TABLET PO PRN (16:50)
--- NOTE | 2023-10-18 17:52 | P.HPIM ---
History of Present Illness H&P Date: 10/18/23 28 year old M with PMH of hypertension, L4-5 herniated disk, h/o renal cyst with removal presents to the ED. He reports lower extremity swelling that has been progressively getting worse since Monday. He also reports urinary hesitancy and difficulty emptying his bladder. He was prescribed Flomax in the past which did not help much. He reports bilateral flank pain which is squeezing in nature. He has been taking 1600 mg of ibuprofen daily for 40+ days while incarcerated. He reports chronic sinus drainage and dry cough which he attributes to him being a smoker. He reports chest pain that started yesterday while resting, squeezing in nature, constant. He reports left upper extremity numbness but states is chronic in nature. Father history of Bergers disease and skin CA. Mother history of CO at age 38 and 42. In the ED, he underwent extensive evaluation. BP 129/87, HR 109, T 97.6 F, RR 18, 98% on RA. CBC Hg 12.4 and Hct 36.4 with MCV 92.9. Coag panel and D-Dimer within normal limits. CMP K 3.4, bicarb 33, BUN 8, Cr 0.60, Ca 7.6, AST 67, alb 3.1. Troponin 0.055. Mag 1.7. UA trace protein. EKG sinus rhythm. Renal US limited study but no hydronephrosis or significant abnormalities. BNP 35. Patient is admitted for further management and workup. General: no distress, appears at stated age Derm: warm, dry Head: atraumatic, normocephalic, symmetric Eyes: EOMI, no lid lag, anicteric sclera Mouth: no lip lesion, mucus membranes moist Cardiovascular: S1S2 reg, no murmur Lungs: CTA bilateral, no rhonchi, no rales , no accessory muscle use Abdominal: soft, bilateral CVA tenderness, no guarding, no appreciable organomegaly Ext: no gross muscle atrophy, 2+ pitting lower extremity edema, no contractures Neuro: no focal neuro deficits Psych: Alert, oriented, appropriate affect Based on my assessment of this patient, this patient meets a high complexity level of care. Lower extremity swelling: Unknown etiology. Trace protein on UA. BNP within normal limits. Obtain LE Duplex. ASA, Anti-DS DNA, C3/C4, U protein:Cr, A1c. Nephrology consulted. Urinary hesitancy: Bladder scan PRN. Start Flomax 0.4 mg PO QD. Chest pain with Troponin elevation: Trend Trop/EKG to rule out ACS. Telemetry monitoring. Echo ordered. Cardiology consult. Hypokalemia: KCl 40 meq PO x 1. Transaminitis: Lipid panel and Hep panel ordered. Normocytic anemia: Iron studies, B12, Folate ordered. Hypocalcemia: Corrected Ca 8.3. Monitor. Hypoalbuminemia: Likely due to proteinuria. CODE STATUS: FULL CODE DVT Prophylaxis: Lovenox SQ GI Prophylaxis: Designated medical POA if patient is not able to make medical decisions for themselves: I have reviewed the following delivery consultant notes: ED note. I have reviewed the results of the following tests: As above. I have ordered the following tests: As above. 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, back pain, L4-5 disc herniation, History of Any Multi-Drug Resistant Organisms: None Reported Past Surgical History: Adenoidectomy, Tonsillectomy Additional Past Surgical History / Comment(s): cyst removed from kidney, wisdom teeth Past Psychological History: No Psychological Hx Reported Smoking Status: Current every day smoker Past Alcohol Use History: Rare Past Drug Use History: Marijuana - Past Family History Father Additional Family Medical History / Comment(s): skin cancer Medications and Allergies Home Medications Medication Instructions Recorded Confirmed Type Ibuprofen [Motrin] 800 mg PO Q8H PRN 10/18/23 10/18/23 History oxyCODONE HCL [Oxycodone HCl] 20 mg PO TID 10/18/23 10/18/23 History tiZANidine HCL 4 mg PO HS 10/18/23 10/18/23 History Allergies Allergy/AdvReac Type Severity Reaction Status Date / Time No Known Allergies Allergy Verified 10/18/23 15:25 Physical Exam Vitals: Vital Signs Temp Pulse Resp BP Pulse Ox 10/18/23 15:16 109 H 18 129/87 98 10/18/23 12:48 97.6 F 104 H 18 170/91 99 Intake and Output 10/18/23 10/18/23 10/18/23 06:59 14:59 22:59 Other: Weight 79.379 kg Results CBC & Chem 7: 10/18/23 13:59 10/18/23 13:59 Labs: Abnormal Lab Results - Last 24 Hours (Table) 10/18/23 10/18/23 10/18/23 Range/Units 12:59 13:59 13:59 RBC 3.92 L (4.30-5.90) m/uL Hgb 12.4 L (13.0-17.5) gm/dL Hct 36.4 L (39.0-53.0) % Potassium 3.4 L (3.5-5.1) mmol/L Carbon Dioxide 33 H (22-30) mmol/L BUN 8 L (9-20) mg/dL Creatinine 0.60 L (0.66-1.25) mg/dL Calcium 7.6 L (8.4-10.2) mg/dL AST 67 H (17-59) U/L Troponin I (0.000-0.034) ng/mL Total Protein 5.3 L (6.3-8.2) g/dL Albumin 3.1 L (3.5-5.0) g/dL Urine Protein Trace H (Negative) 10/18/23 Range/Units 13:59 RBC (4.30-5.90) m/uL Hgb (13.0-17.5) gm/dL Hct (39.0-53.0) % Potassium (3.5-5.1) mmol/L Carbon Dioxide (22-30) mmol/L BUN (9-20) mg/dL Creatinine (0.66-1.25) mg/dL Calcium (8.4-10.2) mg/dL AST (17-59) U/L Troponin I 0.055 H* (0.000-0.034) ng/mL Total Protein (6.3-8.2) g/dL Albumin (3.5-5.0) g/dL Urine Protein (Negative)
[2023-10-18] MEDS: POTASSIUM CHLORIDE ER 20 MEQ TAB.ER PO STA (17:57)
[2023-10-18] MEDS: HYDROmorphone 1 MG/ML 1 ML SYRINGE IVP STA (17:58)
[2023-10-18 18:35] LABS: Creatinine,Urine Random 265.9 mg/dL; Protein/Creatinine Ratio,Urine 0.056
[2023-10-18 18:52] LABS: Amphetamine Screen,Urine Not Detected (NotDetected); Barbiturate Screen,Urine Not Detected (NotDetected); Benzodiazepines Screen,Urine Not Detected (NotDetected); Cocaine Screen,Urine Not Detected (NotDetected); Methadone Screen, Urine Not Detected (NotDetected); Opiate Screen,Urine Detected (NotDetected); Oxycodone Screen, Urine Detected (NotDetected); Phencyclidine Screen,Urine Not Detected (NotDetected); Tricyclic Antidepressant,Urine Not Detected (NotDetected); Urn Cannabinoid Scrn Detected (NotDetected)
--- NOTE | 2023-10-18 20:16 | US ---
EXAMINATION TYPE: US venous doppler duplex LE DATE OF EXAM: 10/18/2023 6:18 PM COMPARISON: NONE CLINICAL INDICATION: Male, 28 years old with history of swelling; Leg swelling. No hx DVT. Patient no t on thinners SIDE PERFORMED: Bilateral TECHNIQUE: The lower extremity deep venous system is examined utilizing real time linear array sonog patel with graded compression, doppler sonography and color-flow sonography. VESSELS IMAGED: Common Femoral Vein Deep Femoral Vein Greater Saphenous Vein * Femoral Vein Popliteal Vein Small Saphenous Vein * Proximal Calf Veins (* superficial vessels) Right Leg: Negative for DVT Left Leg: Negative for DVT IMPRESSION: Grayscale, color doppler, spectral doppler imaging performed of the deep veins of the lo wer extremities. There is normal flow, compressibility, vascular waveforms.
[2023-10-18] MEDS: tiZANidine 4 MG TAB PO SCH (21:12)
[2023-10-19 04:26] LABS: Anti-DNA, DS unit <1.0 IU/mL; DNA Double-Stranded Negative (Negative)
[2023-10-19] MEDS: TAMSULOSIN 0.4 MG CAP.ER.24H PO SCH (07:37)
[2023-10-19] MEDS: ENOXAPARIN 40 MG/0.4 ML SYRINGE SQ SCH (07:37)
[2023-10-19] MEDS: FUROSEMIDE 10 MG/ML 4 ML VIAL IV STA (08:52)
[2023-10-19 08:56] LABS: HCT 36.9 % (39.0-53.0); HGB 11.7 gm/dL (13.0-17.5); MCH 30.8 pg (25.0-35.0); MCHC 31.8 g/dL (31.0-37.0); MCV 96.8 fL (80.0-100.0); Mean Platelet Volume 8.9; Platelet Count 314 k/uL (150-450); RBC 3.81 m/uL (4.30-5.90); RDW 12.3 % (11.5-15.5); WBC 8.9 k/uL (3.8-10.6)
[2023-10-19 09:19] LABS: ALT 17 U/L (4-49); AST 61 U/L (17-59); Albumin 3.7 g/dL (3.5-5.0); Alkaline Phosphatase 78 U/L (38-126); Bilirubin, Delta 0.2 mg/dL (0.0-0.2); Bilirubin,Unconjugated 0.1 mg/dL (0.0-1.1); Total Bilirubin 0.3 mg/dL (0.2-1.3)
[2023-10-19] MEDS: NICOTINE 21MG/24HR PATCH TRANSDERM SCH (09:20)
--- NOTE | 2023-10-19 10:00 | P.CRDCN ---
History of Present Illness Consult date: 10/19/23 Reason for Consult (text): Peripheral edema, troponin elevation History of present illness: This is a 28-year-old male with no previous cardiac history, does not follow with a pumper gauger. We have been asked to evaluate the patient for peripheral edema and troponin elevation. Patient states that he has had edema in the legs for the last couple of days and also feels like his bladder is full and is not emptying after he urinates. He does have increased shortness of breath with exertion which is new for him. He is usually very active. He denies having any chest pain, no cough or fever. No lightheadedness or dizziness. He has no h istory of stroke or seizure. He does drink a lot of caffeine daily. No alcohol use. He uses marijuana. No tobacco use. Bladder scan revealed 101-150 mL. EKG: Sinus rhythm with no acute ST-T wave changes. Ultrasound of the lower extremity negative for DVT Renal ultrasound was limited but no significant abnormality Laboratory studies: WBC 8.9, hemoglobin 11.7. D-dimer 0.43. Sodium 138, potas sium 3.4, BUN 8 creatinine 0.6. Troponin 0.055, 0.047, 0.044. AST 61 other liver function test are normal. Albumin 3.7 and total protein 6. Home cardiac medications: None Echocardiogram in 2020 revealed normal EF. Review Of Systems: At the time of my exam: CONSTITUTIONAL: Denies fever or chills. HEENT: Denies blurred vision, vision changes, or eye pain. Denies hemoptysis CARDIOVASCULAR: Denies chest pain. Denies orthopnea. Denies PND. Denies palpitations. Reports lower extremity edema RESPIRATORY: Denies shortness of breath. Reports dyspnea on exertion. GASTROINTESTINAL: Denies abdominal pain. Denies nausea or vomiting. HEMATOLOGIC: Denies bleeding disorders. GENITOURINARY: Denies any blood in urine. SKIN: Denies puritis. Denies rash. Physical examination: Gen: This is a 28-year-old male in no acute distress VS: reviewed, blood pressure 129/70, heart rate 78, pulse ox 94% on room air. HEENT: Head is atraumatic, normocephalic. Pupils equal, round. Sclerae is anicteric. NECK: Supple. No JVD. LUNGS: Clear to auscultation. No wheezes or rhonchi. No intercostal retractions. HEART: Regular rate and rhythm. No murmur. ABDOMEN: Soft No tenderness. EXTREMITIES: Edema to feet only. Dorsalis pedis palpable bilaterally. No calf tenderness. NEUROLOGICAL: Patient is awake, alert and oriented x3. Assessment: Pedal edema of unclear etiology Flat troponins of unclear etiology, doubt ischemia or injury Plan: IV Lasix 40 mg x 1 Repeat EKG and troponin in the morning Obtain 2-D echocardiogram and Doppler study to assess cardiac structure and function Further recommendations to follow based upon clinical course Thank you kindly for this consultation. Nurse practitioner note has been reviewed, I agree with documented findings and plan of care. Patient was seen and examined. 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 well, back pain, L4-5 disc herniation, History of Any Multi-Drug Resistant Organisms: None Reported Past Surgical History: Adenoidectomy, Tonsillectomy Additional Past Surgical History / Comment(s): cyst removed from kidney, wisdom teeth Past Psychological History: No Psychological Hx Reported Smoking Status: Current every day smoker Past Alcohol Use History: Rare Past Drug Use History: Marijuana - Past Family History Father Additional Family Medical History / Comment(s): skin cancer Mother Family Medical History: Congestive Heart Failure ([place]), Myocardial Infarction ([place]) Additional Family Medical History / Comment(s): heart attack at 38 and 42. Medications and Allergies Home Medications Medication Instructions Recorded Confirmed Type Ibuprofen [Motrin] 800 mg PO Q8H PRN 10/18/23 10/18/23 History oxyCODONE HCL [Oxycodone HCl] 20 mg PO TID 10/18/23 10/18/23 History tiZANidine HCL 4 mg PO HS 10/18/23 10/18/23 History Allergies Allergy/AdvReac Type Severity Reaction Status Date / Time No Known Allergies Allergy Verified 10/18/23 15:25 Physical Exam Vitals: Vital Signs Temp Pulse Pulse Resp BP BP Pulse Ox 10/19/23 04:00 98.0 F 78 18 129/70 94 L 10/19/23 01:16 75 18 10/18/23 23:26 97.6 F 75 18 127/78 95 10/18/23 20:50 97.7 F 85 18 127/95 96 10/18/23 20:37 87 18 119/78 99 10/18/23 17:53 97.8 F 99 18 125/85 99 10/18/23 15:16 109 H 18 129/87 98 10/18/23 12:48 97.6 F 104 H 18 170/91 99 Intake and Output 10/18/23 10/19/23 10/19/23 22:59 06:59 14:59 Intake Total 200 Output Total 200 200 Balance 0 -200 Intake: IV 200 0.9 200 Output: Urine 200 200 Other: Voiding Method Toilet Toilet # Voids 1 Weight 79.379 kg 81.9 kg Results 10/19/23 07:31 10/18/23 13:59 Cardiac Enzymes 10/18/23 10/18/23 10/18/23 Range/Units 13:59 13:59 18:17 AST 67 H (17-59) U/L Troponin I 0.055 H* 0.047 H* (0.000-0.034) ng/mL 10/18/23 10/19/23 Range/Units 20:53 07:31 AST 61 H (17-59) U/L Troponin I 0.044 H* (0.000-0.034) ng/mL Coagulation 10/18/23 Range/Units 13:59 PT 10.6 (10.0-12.5) sec APTT 25.8 (22.0-30.0) sec CBC 10/18/23 10/19/23 Range/Units 13:59 07:31 WBC 7.2 8.9 (3.8-10.6) k/uL RBC 3.92 L 3.81 L (4.30-5.90) m/uL Hgb 12.4 L 11.7 L (13.0-17.5) gm/dL Hct 36.4 L 36.9 L (39.0-53.0) % Plt Count 286 314 (150-450) k/uL Comprehensive Metabolic Panel 10/18/23 10/19/23 Range/Units 13:59 07:31 Sodium 138 (137-145) mmol/L Potassium 3.4 L (3.5-5.1) mmol/L Chloride 104 (98-107) mmol/L Carbon Dioxide 33 H (22-30) mmol/L BUN 8 L (9-20) mg/dL Creatinine 0.60 L (0.66-1.25) mg/dL Glucose 86 (74-99) mg/dL Calcium 7.6 L (8.4-10.2) mg/dL Unconjugated Bilirubin 0.1 (0.0-1.1) mg/dL AST 67 H 61 H (17-59) U/L ALT 16 17 (4-49) U/L Alkaline Phosphatase 63 78 (38-126) U/L Total Protein 5.3 L 6.0 L (6.3-8.2) g/dL Albumin 3.1 L 3.7 (3.5-5.0) g/dL Current Medications Generic Name Dose Route Start Last Admin Trade Name Freq PRN Reason Stop Dose Admin Acetaminophen 650 mg 10/18/23 15:03 Acetaminophen Tab 325 Mg Tab PO Q6HR PRN Mild Pain or Fever > 100.5 Enoxaparin Sodium 40 mg 10/19/23 09:00 10/19/23 07:37 Enoxaparin 40 Mg/0.4 Ml Syringe SQ 40 mg DAILY DAVONTE Administration Melatonin 3 mg 10/18/23 16:50 Melatonin 3 Mg Tablet PO HS PRN Insomnia Naloxone HCl 0.2 mg 10/18/23 15:03 Naloxone 0.4 Mg/Ml 1 Ml Vial IV Q2M PRN Opioid Reversal Nicotine 1 patch 10/19/23 09:15 10/19/23 09:20 Nicotine 21mg/24hr Patch TRANSDERM 1 patch DAILY DAVONTE Administration Ondansetron HCl 4 mg 10/18/23 16:50 Ondansetron 4 Mg/2 Ml Vial IVP Q8HR PRN Nausea And Vomiting Oxycodone HCl 20 mg 10/18/23 22:00 10/19/23 07:38 Oxycodone Hcl 5 Mg Tab PO 20 mg TID DAVONTE Administration Tamsulosin HCl 0.4 mg 10/19/23 08:30 10/19/23 07:37 Tamsulosin 0.4 Mg Cap.Er.24h PO 0.4 mg [id number] DAVONTE Administration Tizanidine HCl 4 mg 10/18/23 21:00 10/18/23 21:12 Tizanidine 4 Mg Tab PO 4 mg HS DAVONTE Administration Intake and Output 10/18/23 10/19/23 10/19/23 22:59 06:59 14:59 Intake Total 200 Output Total 200 200 Balance 0 -200 Intake: IV 200 0.9 200 Output: Urine 200 200 Other: Voiding Method Toilet Toilet # Voids 1 Weight 79.379 kg 81.9 kg 10/19/23 07:31 10/18/23 13:59
[2023-10-19 10:06] VITALS: TEMP 98.1
--- NOTE | 2023-10-19 10:27 | P.NPCON ---
History of Present Illness - Reason for Consult proteinuria - History of Present Illness Reason for consultation: Edema History of present illness: Patient is a 28-year-old male seen in consultation for peripheral edema. Patient states he noticed edema in his lower extremities on Monday and has been progressively getting worse. Patient states he was recently released from [facility]. While he was in [facility], patient states he was taking 1600 mg of Motrin on a daily basis. He also admits to taking Tylenol and oxycodone. Denies chest pain or shortness of breath. Has been voiding. Denies gross hematuria or dysuria. Denies family history of renal disease. No history of diabetes. No history of coronary artery disease. No vomiting or diarrhea. No fever or chills. Vital signs are stable. General: No acute distress. HEENT: Head exam is unremarkable. LUNGS: No audible rhonchi or wheezes. HEART: Rate and Rhythm are regular. ABDOMEN: Nontender. EXTREMITITES: 1+ edema. 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 well, back pain, L4-5 disc herniation, History of Any Multi-Drug Resistant Organisms: None Reported Past Surgical History: Adenoidectomy, Tonsillectomy Additional Past Surgical History / Comment(s): cyst removed from kidney, wisdom teeth Past Psychological History: No Psychological Hx Reported Smoking Status: Current every day smoker Past Alcohol Use History: Rare Past Drug Use History: Marijuana - Past Family History Father Additional Family Medical History / Comment(s): skin cancer Mother Family Medical History: Congestive Heart Failure (CHF), Myocardial Infarction ([place]) Additional Family Medical History / Comment(s): heart attack at 38 and 42. Medications and Allergies Home Medications Medication Instructions Recorded Confirmed Type Ibuprofen [Motrin] 800 mg PO Q8H PRN 10/18/23 10/18/23 History oxyCODONE HCL [Oxycodone HCl] 20 mg PO TID 10/18/23 10/18/23 History tiZANidine HCL 4 mg PO HS 10/18/23 10/18/23 History Allergies Allergy/AdvReac Type Severity Reaction Status Date / Time No Known Allergies Allergy Verified 10/18/23 15:25 Physical Exam Vitals: Vital Signs Temp Pulse Pulse Resp BP BP Pulse Ox 10/19/23 08:00 98.1 F 100 18 120/77 100 10/19/23 04:00 98.0 F 78 18 129/70 94 L 10/19/23 01:16 75 18 10/18/23 23:26 97.6 F 75 18 127/78 95 10/18/23 20:50 97.7 F 85 18 127/95 96 10/18/23 20:37 87 18 119/78 99 10/18/23 17:53 97.8 F 99 18 125/85 99 10/18/23 15:16 109 H 18 129/87 98 10/18/23 12:48 97.6 F 104 H 18 170/91 99 Intake and Output 10/18/23 10/19/23 10/19/23 22:59 06:59 14:59 Intake Total 200 540 Output Total 374 346 8749 Balance 0 -200 -1110 Intake: IV 200 0.9 200 Oral 540 Output: Urine [id number] Uretheral (Coulter) 775 Other: Voiding Method Toilet Toilet Indwelling Catheter # Voids 1 Weight 79.379 kg 81.9 kg Results - Lab Results Most recent lab results Calcium 7.6 mg/dL (8.4-10.2) L 10/18/23 13:59 Magnesium 1.7 mg/dL (1.6-2.3) 10/18/23 13:59 Urine Creatinine 265.9 mg/dL 10/18/23 12:59 Urine Total Protein 15.0 mg/dL 10/18/23 12:59 10/19/23 07:31 10/18/23 13:59 Assessment and Plan Plan: Assessment: 1. Peripheral edema. Doubt nephrotic syndrome as only trace protein noted on urine. Urine protein to creatinine ratio 0.05. Albumin today is 3.7. No history of kidney disease. GFR at baseline. 2. Hypokalemia from poor intake and diuresis. Replaced. Plan: Check 24-hour urine for protein. Check serum electrophoresis and immunofixation. Follow-up echocardiogram. Low-salt diet and 1500 cc fluid restriction. Avoid nephrotoxins, including NSAIDs which can cause edema. Serologies negative so far. Thank you for the consultation. I will continue to follow the patient with you during his hospital stay.
--- NOTE | 2023-10-19 11:22 | CA ---
Transthoracic Echo Report Name: Ryne Correa Age: 28 Gender: M : 1995 Exam Date: 10/19/2023 08:34 Exam Location: [facility] Ht (in): 72 Wt (lb): 175 Ordering Physician: Rafy Donnelly MD Attending/Referring Phys: [id number], Andrzej [employer] Jaylin Trinidad RDCS Procedure CPT: Indications: chf? Cardiac Hx: Technical Quality: Good Contrast 1: Total Dose (mL): Contrast 2: Total Dose (mL): MEASUREMENTS (Male / Female) Normal Values 2D ECHO LV Diastolic Diameter PLAX 4.8 cm 4.2 - 5.9 / 3.9 - 5.3 cm LV Systolic Diameter PLAX 3.3 cm IVS Diastolic Thickness 1.1 cm 0.6 - 1.0 / 0.6 - 0.9 cm LVPW Diastolic Thickness 1.1 cm 0.6 - 1.0 / 0.6 - 0.9 cm LV Relative Wall Thickness 0.5 RV Internal Dim ED PLAX 2.0 cm LA Systolic Diameter LX 3.4 cm 3.0 - 4.0 / 2.7 - 3.8 cm LV Diastolic Volume MOD BP 95.2 cm??? 67 - 155 / 56 - 104 cm??? LV Systolic Volume MOD BP 27.7 cm??? 22 - 58 / 19 - 49 cm??? LV Ejection Fraction MOD BP 70.9 % >= 55 % LV Cardiac Index MOD BP 3458.0 cm???/min???m??? LV Diastolic Volume MOD 4C 107.9 cm??? LV Systolic Volume MOD 4C 30.3 cm??? LV Ejection Fraction MOD 4C 71.9 % LV Cardiac Index MOD 4C 3975.2 cm???/min???m??? LV Diastolic Length 4C 8.8 cm LV Systolic Length 4C 6.7 cm LV Diastolic Volume MOD 2C 73.9 cm??? LV Systolic Volume MOD 2C 25.6 cm??? LV Ejection Fraction MOD 2C 65.3 % LV Cardiac Index MOD 2C 2473.3 cm???/min???m??? LV Diastolic Length 2C 7.7 cm LV Systolic Length 2C 6.7 cm LA Volume 73.8 cm??? 18 - 58 / 22 - 52 cm??? LA Volume Index 36.7 cm???/m??? 16 - 28 cm???/m??? M-MODE Aortic Root Diameter MM 3.8 cm LA Systolic Diameter MM 2.9 cm LA Ao Ratio MM 0.8 AV Cusp Separation MM 1.9 cm DOPPLER MV Area PHT 3.5 cm??? Mitral E Point Velocity 86.0 cm/s Mitral A Point Velocity 76.4 cm/s Mitral E to A Ratio 1.1 MV Deceleration Time 216.5 ms TR Peak Velocity 221.7 cm/s TR Peak Gradient 19.7 mmHg Right Ventricular Systolic Press 24.7 mmHg FINDINGS Left Ventricle Left ventricular ejection fraction is estimated at 60-65 %. Mildly increased septal wall thickness. No obvious regional wall motion abnormalities. Normal left ventricular diastolic filling pattern. Left ventricular cavity size normal. Right Ventricle Normal right ventricular size and function. Right ventricular systolic pressure within normal limits. Right Atrium Normal right atrial size. Left Atrium Moderately increased left atrial volume. Mildly increased left atrial area. Mitral Valve Structurally normal mitral valve. Trace mitral regurgitation. Aortic Valve Trileaflet aortic valve. No aortic valve stenosis or regurgitation. Tricuspid Valve Structurally normal tricuspid valve. Trace to mild tricuspid regurgitation. Pulmonic Valve Structurally normal pulmonic valve. Trace pulmonic regurgitation. No pulmonic stenosis. Pericardium No pericardial or pleural effusion. Aorta Mildly dilated aortic annulus. CONCLUSIONS Normal biventricular dimension and systolic function Previewed by: Dr. Michi Sal MD (Electronically Signed) Final Date: 19 October 2023 11:21
[2023-10-19 11:28] LABS: African American GFR (CKD) >90 (>60 ml/min/1.73 sqM); Anion Gap 2 mmol/L; Blood Urea Nitrogen 11 mg/dL (9-20); Calcium 9.1 mg/dL (8.4-10.2); Carbon Dioxide 36 mmol/L (22-30); Chloride 103 mmol/L (98-107); Glucose 92 mg/dL (74-99); Non-African American GFR(CKD) >90 (>60 ml/min/1.73 sqM); Potassium 4.6 mmol/L (3.5-5.1); Sodium 141 mmol/L (137-145)
[2023-10-19 11:42] VITALS: BP 136/75; PULSE 115; RESP 20
--- NOTE | 2023-10-19 15:09 | P.DS ---
Providers Date of admission: 10/18/23 15:06 Expected date of discharge: 10/19/23 Attending physician: Samuel Cuenca MD Consults: 10/18/23 15:03 Consult Physician Routine Consulting Provider: Marcelo Gutierres Consult Reason/Comments: trop elevated, peripheral edema Do you want consulting provider notified?: Yes Consult Physician Routine Consulting Provider: Chandni Britt Consult Reason/Comments: Peripheral edema, Do you want consulting provider notified?: Yes 10/19/23 10:40 Consult Physician Routine Consulting Provider: Brad Camacho Consult Reason/Comments: urinary rentention, pt/ refusing estrada catheter. Do you want consulting provider notified?: Yes Primary care physician: [facility] Course: 28 year old M with PMH of hypertension, L4-5 herniated disk, h/o renal cyst with removal presents to the ED. He reports lower extremity swelling that has been progressively getting worse since Monday. He also reports urinary hesitancy and difficulty emptying his bladder. He was prescribed Flomax in the past which did not help much. He reports bilateral flank pain which is squeezing in nature. He has been taking 1600 mg of ibuprofen daily for 40+ days while incarcerated. He reports chronic sinus drainage and dry cough which he attributes to him being a smoker. He reports chest pain that started yesterday while resting, squeezing in nature, constant. He reports left upper extremity numbness but states is chronic in nature. Father history of Bergers disease and skin CA. Mother history of SC at age 38 and 42. In the ED, he underwent extensive evaluation. BP 129/87, HR 109, T 97.6 F, RR 18, 98% on RA. CBC Hg 12.4 and Hct 36.4 with MCV 92.9. Coag panel and D-Dimer within normal limits. CMP K 3.4, bicarb 33, BUN 8, Cr 0.60, Ca 7.6, AST 67, alb 3.1. Troponin 0.055. Mag 1.7. UA trace protein. EKG sinus rhythm. Renal US limited study but no hydronephrosis or significant abnormalities. BNP 35. Patient is admitted for further management and workup. 10/18 Patient was seen and examined this morning. Swelling persistent. Continued difficulty with urination. Troponins 0.055, 0.047, 0.044. NURIA, DS DNA negative. C3 and C4 within normal limits. A1c 5.2. Venous duplex negative for DVT. Renal US no hydronephrosis. Cardiology consulted, Echo ordered showing EF 60-65% trace MR/TR/TN, mildly dilated aortic annulus. Nephrology consulted, discussed with Dr. Santo, doubt nephrotic syndrome, serum electrophoresis and immunofixation, 24H urine protein ordered. Noted to have urinary retention, estrada catheter placed, 800 cc urine obtained. Patient left AMA. General: no distress, appears at stated age Derm: warm, dry Head: atraumatic, normocephalic, symmetric Eyes: EOMI, no lid lag, anicteric sclera Mouth: no lip lesion, mucus membranes moist Cardiovascular: S1S2 reg, no murmur Lungs: CTA bilateral, no rhonchi, no rales , no accessory muscle use Abdominal: soft, bilateral CVA tenderness, no guarding, no appreciable organomegaly Ext: no gross muscle atrophy, 2+ pitting lower extremity edema, no contractures Neuro: no focal neuro deficits Psych: Alert, oriented, appropriate affect Discharge Diagnosis: Lower extremity swelling Urinary hesitancy Chest pain with Troponin elevation Hypokalemia Transaminitis Normocytic anemia Hypocalcemia Hypoalbuminemia Patient Condition at Discharge: Stable Plan - Discharge Summary Discharge Rx Participant: Yes New Discharge Prescriptions: No Action oxyCODONE HCL [Oxycodone HCl] 20 mg PO TID Ibuprofen [Motrin] 800 mg PO Q8H PRN PRN Reason: Pain tiZANidine HCL 4 mg PO HS Discharge Medication List Ibuprofen [Motrin] 800 mg PO Q8H PRN 10/18/23 [History] oxyCODONE HCL [Oxycodone HCl] 20 mg PO TID 10/18/23 [History] tiZANidine HCL 4 mg PO HS 10/18/23 [History] Follow up Appointment(s)/Referral(s): Ryne Diggs DO [Primary Care Provider] - 1-2 days Discharge Disposition: LEFT AGAINST MEDICAL ADVICE
[2023-10-19 15:42] LABS: Protein, Total 6.2 g/dL (6.2-8.2)
[2023-10-19 15:48] LABS: % Iron Saturation 11.48 (15.00-50.00); Chol/HDL Ratio 3.37 Ratio; Iron 35 UG/DL (65-175); LDL Cholesterol,Calculated 99.7 mg/dL (0.0-131.0); Total Iron Binding Capacity 305 UG/DL (228-460); VLDL Calculation 13.48 mg/dL (5.00-40.00)
[2023-10-19 15:53] LABS: Hepatitis A Antibody IgM Nonreactive (Nonreactive); Hepatitis B Core IgM Nonreactive (Nonreactive); Hepatitis B Surface Antigen Nonreactive (Nonreactive); Hepatitis C IgG Antibody Nonreactive (Nonreactive)
[2023-10-20 20:47] LABS: Albumin 3.58 g/dL (3.80-4.90); Gamma Globulin 0.69 g/dL (0.70-1.50)
== END 2023-10-19 12:32 | disposition left against medical advice (07) ==
LOC: EC 12:37 → 3SCARD 15:06
PROVIDERS: ADMIT Student in an Organized Health Care Education/Training Program; ATTEND Student in an Organized Health Care Education/Training Program
DX: R22.43 Localized swelling, mass and lump, lower limb, bilateral (principal); R07.9 Chest pain, unspecified; R79.89 Other specified abnormal findings of blood chemistry; E87.6 Hypokalemia; R39.11 Hesitancy of micturition; I10 Essential (primary) hypertension; R74.01 Elevation of levels of liver transaminase levels; D64.9 Anemia, unspecified; E83.51 Hypocalcemia; E88.09 Other disorders of plasma-protein metabolism, not elsewhere classified; F17.200 Nicotine dependence, unspecified, uncomplicated; Z79.899 Other long term (current) drug therapy; Z53.29 Procedure and treatment not carried out because of patient's decision for other reasons
CPT/HCPCS: 96372; 96375; 96374; 99285; 36415; 93005; 93306; 86160 ×2; 85379; 83880; 82570; 80061; 80053; 80048; 80076; 80074; 84443; 84156; 82607; 82728; 82746; 83540; 83550; 83735; 84484; 85025; 85027; 85610; 85730; 81003; 84165; 86038; 80306; 86225; 86334; 83036; 76770; 93970; G0378 ×2; S4990; J1940; J1650; J1170